=== PATIENT | female | born 1960 | race Caucasian/White ===

== ENCOUNTER 2018-06-12 18:22 | Emergency (ER) | payer OTHER ==
[2018-06-12] MEDS ORDERED: KETOROLAC TROMETHAMINE 30 MG/1ML VIAL IV ONE (18:29)
[2018-06-12] MEDS ORDERED: 0.9 % SODIUM CHLORIDE 1,000 ML IV ONE (18:29)
--- NOTE | 2018-06-12 18:31 | ED Physician Documentation ---
Flank Pain - HISTORIAN Historian: patient <Renetta Diaz - Last Filed: 06/12/18 18:30> - HPI Chief Complaint: Flank Pain Additional Information: Patient is a 57-year-old female who presents to the ER via [facility] with c/o right f lank pain. Patient states that she noticed a pain 2 nights ago that woke her up- then she had some mild GI upset- no vomiting and no diarrhea. She thought that she ate to many avocados. Then she stopped here in town to get fuel and she developed severe flank pain and had to call an ambulance. Onset: minutes (Just [employer]) Duration: constant Timing: still present Context: bad food (thought she ate bad avocados) Severity: moderate (on arrival) Quality: pain, sharp Associated Symptoms: nausea, back pain (right flank r/t the back) Exacerbated by: movements, upright position Relieved by: remaining still Further Comments: no - ROS CONST: recent illness (some nausea and discomfort) GI/: denies: constipation, problems urinating CVS/RESP: none EYES/ENT: none MS/SKIN/LYMPH: none NEURO/PSYCH: none - SOCIAL HX Smoking History: non-smoker Alcohol Use: none Drug Use: none - FAMILY HX Family History: kidney stones - PAST HX Past History: kidney stones Ischemic Bowel Risk Factors: none Other History: none Surgeries/Procedures: other (tonsillectomy, partial thyroidectomy, microdisection lumbar) Immunizations: UTD Medications: none Allergies: see nurses note, other (sulfa) - VITAL SIGNS Vital Signs: Vital Signs Temp Pulse Resp BP Pulse Ox 98.3 F 22 134/78 98 06/12/18 18:23 06/12/18 18:23 06/12/18 18:23 06/12/18 18:23 <Elisa Hernandez - Last Filed: 06/12/18 22:17> Progress - Progress Progress: 19:10 patient feeling much better after pain medication- lying comfortably on the cot 20:35 Patient is resting comfortably- denies any pain or nausea- feels ready to go home- she will f/u with PCP when she gets home <Elisa Hernandez - Last Filed: 06/12/18 22:17> ED Results Lab/Radiology - Orders Orders: ED Orders Category Date Time Status CBC/PLATELET/DIFF Routine Lab 06/12/18 Ordered CMP Routine Lab 06/12/18 Ordered LIPASE Stat Lab 06/12/18 Ordered UA W/MICRO IF INDICATED Routine Lab 06/12/18 18:29 Ordered Ketorolac Tromethamine [Toradol] Med 06/12/18 18:29 Once 30 mg IV NOW ONE NORMAL SALINE @ 1000 MLS/HR ( 1000ml BOLUS) Med 06/12/18 18:29 Ordered 0.9 % Sodium Chloride [Normal Saline] 1,000 ml IV Q1H <Renetta Diaz - Last Filed: 06/12/18 18:30> - Radiology Radiology Impressions: Computed tomography abdomen pelvis with contrast History: Right flank and lower quadrant pain Findings: Transverse abdomen and pelvis sections are obtained after 90 mL intravenous Omnipaque 350. The lung bases, liver, gallbladder, pancreas, adrenals, spleen, great vessels, and mesenteric structures are unremarkable. Two small left lower pole renal stones and single tiny right lower pole renal stone are observed. Moderate right hydroureteronephrosis and delayed nephrogram are observed. Bowel loops exhibit normal caliber and wall thickness. The gallbladder is partially contracted. Lower lumbar spondylosis and L4-5 central canal stenosis are observed. Pelvic sections reveal a 3 mm distal right ureteral stone, decompressed urinary bladder, and normal appendix. The uterus and ovaries are normal in size. Impression: 1. 3 mm distal right ureteral stone with moderate obstructive uropathy. 2. Minimal bilateral nephrolithiasis. 3. L4-5 central canal stenosis. Electronically signed on Jun 12, 2018 7:58:21 PM CDT by: Pal Young - Orders Orders: ED Orders Category Date Time Status CT ABD & PELVIS W/ CON Stat Exams 06/12/18 Ordered CBC/PLATELET/DIFF Routine Lab 06/12/18 18:50 Received CMP Routine Lab 06/12/18 18:50 Received LIPASE Stat Lab 06/12/18 18:50 Received UA W/MICRO IF INDICATED Routine Lab 06/12/18 18:29 Ordered 0.9 % Sodium Chloride [Normal Saline] 1,000 ml Med 06/12/18 18:29 Active IV Q1H Ketorolac Tromethamine [Toradol] Med 06/12/18 18:29 Discontinued 30 mg IV NOW ONE fentaNYL CITRATE/PF [Sublimaze] Med 06/12/18 18:34 Discontinued 50 mcg IV NOW ONE <Elisa Hernandez - Last Filed: 06/12/18 22:17> Abdominal Pain Physical Exam - Physical Exam General Appearance: moderate distress EENT: eye inspection normal, ENT inspection normal, pharynx normal, no signs of dehydration, MELISSA NECK: normal inspection, supple RESPIRATORY: no resp distress, breath sounds normal CVS: heart sounds normal, equal pulses ABDOMEN: soft, normal bowel sounds, tenderness BACK: normal inspection SKIN: warm/dry, normal color EXTREMITIES: non-tender, normal range of motion NEURO: oriented X3, motor nml, sensation nml, mood/affect nml, cognition normal Vital Signs: Vital Signs Temp Pulse Resp BP Pulse Ox 98.3 F 22 134/78 98 06/12/18 18:23 06/12/18 18:23 06/12/18 18:23 06/12/18 18:23 <Elisa Hernandez - Last Filed: 06/12/18 22:17> Discharge <Renetta Diaz - Last Filed: 06/12/18 18:30> Decision to Admit: NO Decision Time: 20:35 <Elisa Hernandez - Last Filed: 06/12/18 22:17> Clincal Impression: Renal colic, bilateral, Urinary tract infection Referrals: Primary Doctor,No [Primary Care Provider] - 2 Days Additional Instructions: Strain urine Take medications as directed; 1. Zofran 4 mg by mouth every 6 hours as needed for nausea 2. Toradol 10 mg every 6 hours as needed for pain 3. Macrobid 100 mg by mouth twice a day Increase water intake Follow up with PCP when you get home
[2018-06-12] MEDS ORDERED: fentaNYL CITRATE/PF 100 MCG/2 ML INJ. IV ONE (18:34)
[2018-06-12 19:10] LABS: BASOPHILS % 0.6 (0.0-1.5); EOSINOPHILS % 2.8 % (0.0-6.8); MEAN CORPUSCULAR HEMOGLOBIN 31.4 pg (28.0-34.0); MONOCYTES % 7.3 % (0.0-11.0); NEUTROPHILS # 2.8 # k/uL (1.4-7.7)
[2018-06-12 19:22] LABS: eGFR (Non-African) > 60
[2018-06-12 19:58] LABS: APPEARANCE,URINE CLOUDY (CLEAR); COLOR,URINE YELLOW (YELLOW); OCCULT BLOOD,URINE 2+ (NEGATIVE); PH URINE 5.5 (5.0 - 8.0); UROBILINOGEN URINE 0.2 Eu (0.2-1.0)
[2018-06-12 19:59] LABS: AMORPHOUS SEDIMENT,UR FEW (NEGATIVE)
[2018-06-12 20:41] VITALS: BP 110/60
--- NOTE | 2018-06-13 05:45 | Diagnostic Imaging Report ---
KAUSHIK MORA [facility] [id number] [facility] [address] [place] [address]. [id number] Report Submission Date: Jun 12, 2018 7:58:21 PM CDT Patient Study Name: SINDY KING Date: Jun 12, 2018 7:20:28 PM CDT Modality Type: CT\SR Gender: F Description: CT ABD PELVIS W/ CON : 62 Institution: [facility] Physician: KAUSHIK MORA Computed tomography abdomen pelvis with contrast History: Right flank and lower quadrant pain Findings: Transverse abdomen and pelvis sections are obtained after 90 mL intravenous Omnipaque 350. The lung bases, liver, gallbladder, pancreas, adrenals, spleen, great vessels, and mesenteric structures are unremarkable. Two small left lower pole renal stones and single tiny right lower pole renal stone are observed. Moderate right hydroureteronephrosis and delayed nephrogram are observed. Bowel loops exhibit normal caliber and wall thickness. The gallbladder is partially contracted. Lower lumbar spondylosis and L4-5 central canal stenosis are observed. Pelvic sections reveal a 3 mm distal right ureteral stone, decompressed urinary bladder, and normal appendix. The uterus and ovaries are normal in size. Impression: 1. 3 mm distal right ureteral stone with moderate obstructive uropathy. 2. Minimal bilateral nephrolithiasis. 3. L4-5 central canal stenosis. Electronically signed on Jun 12, 2018 7:58:21 PM CDT by: Pal DUNCAN
== END 2018-06-12 20:38 ==
LOC: ED 18:22
DX: N23 Unspecified renal colic (principal); N39.0 Urinary tract infection, site not specified
CPT/HCPCS: 36415; 74177; 80053; 81002; 83690; 85025; 87086; 96374; 96375; 99283; 99284; J1885; J3010; J7030; Q9967